=== PATIENT | male | born 1970 | race Caucasian/White ===

== ENCOUNTER 2017-06-08 18:35 | Inpatient (IN) | payer SELFPAY ==
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
[2017-06-08 20:09] LABS: EOS % 0.5 % (0-4.5)
[2017-06-08 20:37] LABS: ALBUMIN 4.1 g/dl (3.4-5.0); ANION GAP 6 (8-16); BILIRUBIN,TOTAL 0.4 mg/dL (0.2-1.0); BLOOD UREA NITROGEN 9 mg/dL (7-18); CALCIUM 8.5 mg/dL (8.5-10.1); CHLORIDE 104 mmol/L (98-107); CO2 29 mmol/L (21-32); GLUCOSE,RANDOM 89 mg/dL (74-106); POTASSIUM 4.3 mmol/L (3.5-5.1); SGOT/AST 25 U/L (15-37); SGPT/ALT 39 U/L (12-78); SODIUM 139 mmol/L (136-145); TOT PROT 7.5 g/dl (6.4-8.2)
[2017-06-08 20:38] LABS: ALK PHOS 69 U/L (45-117)
[2017-06-08 22:21] LABS: BASO % 0.3 % (0-2.0); HEMATOCRIT 45.8 % (35.4-49); HEMOGLOBIN 15.1 GM/dL (11.7-16.9); LYMPH % 23.9 % (8-40); MCH 26.4 pg (25.7-33.7); MCHC 32.9 g/dl (32.0-35.9); MEAN CELL VOLUME 80.4 fl (80-96); MEAN PLT VOLUME 7.5 fl (7.5-11.1); MONO % 6.2 % (3.8-10.2); NEUT % 69.1 % (42.8-82.8); PLATELET COUNT 294 K/MM3 (134-434); WHITE BLOOD COUNT 11.5 K/mm3 (4.0-10.0)
[2017-06-08 23:05] LABS: URINE APPEARANCE CLEAR; URINE BILIRUBIN NEGATIVE (NEGATIVE); URINE BLOOD NEGATIVE (NEGATIVE); URINE COLOR COLORLESS; URINE GLUCOSE (UA) NEGATIVE (NEGATIVE); URINE KETONE NEGATIVE (NEGATIVE); URINE LEUK ESTERASE NEGATIVE (NEGATIVE); URINE NITRITE NEGATIVE (NEGATIVE); URINE PROTEIN NEGATIVE (NEGATIVE); URINE UROBILINOGEN NEGATIVE mg/dL (0.2-1.0)
[2017-06-08] MEDS ORDERED: CEFTRIAXONE 1,000 MG in DEXTROSE 5%-WATER - 50 ML IVPB ONE (23:17)
[2017-06-08] MEDS ORDERED: CEFTRIAXONE 1 GM/50 ML BAG ONE (23:32)
[2017-06-09] MEDS ORDERED: ACETAMINOPHEN 325 MG TABLET (FP) PO PRN (00:39)
[2017-06-09] MEDS ORDERED: ONDANSETRON 4 MG/2 ML VIAL IVPUSH PRN (00:43)
[2017-06-09] MEDS ORDERED: SODIUM CHLORIDE 1,000 ML IV SCH (00:45)
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
[2017-06-09] MEDS ORDERED: DEXTROSE 5%-NORMAL SALINE 1,000 ML IV SCH (03:15)
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
[2017-06-09 09:03] LABS: BASO % 0.5 % (0-2.0); EOS % 2.2 % (0-4.5); HEMATOCRIT 43.9 % (35.4-49); HEMOGLOBIN 14.4 GM/dL (11.7-16.9); MCH 26.3 pg (25.7-33.7); MCHC 32.7 g/dl (32.0-35.9); MEAN CELL VOLUME 80.4 fl (80-96); MEAN PLT VOLUME 6.9 fl (7.5-11.1); MONO % 8.8 % (3.8-10.2); NEUT % 60.5 % (42.8-82.8); PLATELET COUNT 274 K/MM3 (134-434); RBC 5.46 M/mm3 (4.00-5.60); RDW 14.2 % (11.9-15.9); WHITE BLOOD COUNT 7.3 K/mm3 (4.0-10.0)
[2017-06-09 09:11] LABS: PROTHROMBIN TIME (PATIENT) 11.3 SEC (9.98-11.88)
[2017-06-09] MEDS ORDERED: CEFTRIAXONE 1 GM/50 ML BAG ONE (09:24)
[2017-06-09] MEDS ORDERED: MORPHINE SULFATE 10 MG/1 ML *VIAL IVPUSH ONE (09:30)
--- NOTE | 2017-06-09 09:44 | HOSP ---
Subjective - Review of Symptoms Events since last encounter: Seen and evaluated in ED holding. Non focal exam No further vomiting Several episodes loose stool after drinking contrast Denies pain Awaiting transport to OR Physical Examination Vital Signs: Vital Signs Temperature 97.7 F 06/08/17 18:45 Pulse Rate 67 06/09/17 09:30 Respiratory Rate 16 06/09/17 09:30 Blood Pressure 114/56 06/09/17 09:30 O2 Sat by Pulse Oximetry (%) 97 06/09/17 06:33 Labs: CBC, BMP 06/09/17 08:30
[2017-06-09 09:48] LABS: ALBUMIN 3.4 g/dl (3.4-5.0); ANION GAP 6 (8-16); BILIRUBIN,TOTAL 0.5 mg/dL (0.2-1.0); BLOOD UREA NITROGEN 8 mg/dL (7-18); CALCIUM 8.1 mg/dL (8.5-10.1); CHLORIDE 106 mmol/L (98-107); CO2 29 mmol/L (21-32); CREATININE 1.1 mg/dL (0.7-1.3); GLUCOSE,RANDOM 81 mg/dL (74-106); POTASSIUM 4.2 mmol/L (3.5-5.1); SGOT/AST 22 U/L (15-37); SGPT/ALT 33 U/L (12-78); SODIUM 141 mmol/L (136-145); TOT PROT 6.4 g/dl (6.4-8.2)
[2017-06-09 09:49] LABS: ALK PHOS 63 U/L (45-117)
[2017-06-09] MEDS ORDERED: PANTOPRAZOLE SODIUM 40 MG VIAL IVPUSH SCH (10:00)
[2017-06-09] MEDS ORDERED: CEFTRIAXONE 1 G/50 ML PREMIX 50 ML IVPB SCH (10:00)
[2017-06-09] MEDS ORDERED: cefTRIAXone 1 GM/50 ML BAG (PRE-DOCKED) IVPB SCH (10:00)
[2017-06-09] MEDS ORDERED: fentaNYL CITRATE 250 MCG/5 ML VIAL ONE (10:55)
[2017-06-09] MEDS ORDERED: PROPOFOL 20 ML ONE (10:55)
[2017-06-09] MEDS ORDERED: ROCURONIUM BROMIDE 50 MG/5 ML VIAL ONE (10:55)
[2017-06-09] MEDS ORDERED: MIDAZOLAM HCL 2 MG/2 ML SINGLE DOSE VIAL ONE (10:55)
[2017-06-09] MEDS ORDERED: LIDOCAINE HCL/PF 2% SDV 5ML VIAL ONE (10:57)
[2017-06-09] MEDS ORDERED: DEXAMETHASONE SOD PHOSPHATE 4 MG/1 ML VIAL ONE (11:05)
[2017-06-09] MEDS ORDERED: cefTRIAXone 1 GM/50 ML BAG (PRE-DOCKED) IVPB ONE (11:22)
[2017-06-09] MEDS ORDERED: GLYCOPYRROLATE 0.2 MG/1 ML VIAL ONE (12:05)
[2017-06-09] MEDS ORDERED: NEOSTIGMINE METHYLSULFATE 0.5 MG/ML - 10 ML MDV ONE (12:05)
[2017-06-09] MEDS ORDERED: KETOROLAC TROMETHAMINE 30 MG/1 ML VIAL ONE ×2 (12:14→12:15)
[2017-06-09] MEDS ORDERED: PROMETHAZINE HCL 25 MG/1 ML VIAL IVPUSH PRN (12:53)
[2017-06-09] MEDS ORDERED: LACTATED RINGERS SOLUTION 1,000 ML IV SCH (13:00)
[2017-06-09] MEDS ORDERED: HYDROmorphone HCL CARPU-JECT 4 MG/1 ML DISP.SYRIN ONE (13:02)
[2017-06-09] MEDS: HYDROmorphone HCL CARPU-JECT 1 MG/1 ML DISP.SYRIN IVPUSH PRN ×4 (13:02→13:32)
--- NOTE | 2017-06-09 13:02 | OP ---
Operative Note - Note: Operative Date: 06/09/17 Pre-Operative Diagnosis: appendicitis and small bowel intussusception Operation: Exploratory Laparotomy, appendectomy and segemntal small bowel ressection with primary stapled anastomsis Findings: inflamed appendix, diverticulum in the jejunum (possible lead point) no active intussuscepted bowel, encountered enterotomy during lysis so it was included in the ressection segment of small bowel. no other pathology identified. Post-Operative Diagnosis: Same as Pre-op Surgeon: Weor Page Anesthesiologist/MEDICAL LEAD: Patrick Espinosa Anesthesia: General Specimens Removed: appendix and 30cm of small bowel (jejunum) with enterotomy Estimated Blood Loss (mls): 30 Drains, Volume Out (mls): 50 (smyth) Fluid Volume Replaced (mls): 1,600 Operative Report Dictated: Yes
[2017-06-09] MEDS ORDERED: morphine CARPU-JECT 2 MG/1 ML DISP.SYRIN IVPUSH PRN (13:14)
[2017-06-09] MEDS: DEXTROSE 5%-NORMAL SALINE 1,000 ML IV SCH (14:30)
[2017-06-09] MEDS: MORPHINE SULFATE 10 MG/1 ML *VIAL IVPUSH PRN (16:50)
[2017-06-09 20:00] VITALS: BMI 24.7
[2017-06-10] MEDS: MORPHINE SULFATE 10 MG/1 ML *VIAL IVPUSH PRN ×4 (00:27→20:13)
[2017-06-10] MEDS: DEXTROSE 5%-NORMAL SALINE 1,000 ML IV SCH ×4 (00:35→20:01)
[2017-06-10 08:26] LABS: BASO % 0.1 % (0-2.0); HEMOGLOBIN 13.9 GM/dL (11.7-16.9); LYMPH % 8.5 % (8-40); MCH 26.1 pg (25.7-33.7); MCHC 32.4 g/dl (32.0-35.9); MEAN CELL VOLUME 80.6 fl (80-96); MEAN PLT VOLUME 7.3 fl (7.5-11.1); MONO % 7.3 % (3.8-10.2); NEUT % 84.1 % (42.8-82.8); PLATELET COUNT 270 K/MM3 (134-434); RBC 5.33 M/mm3 (4.00-5.60); RDW 13.8 % (11.9-15.9); WHITE BLOOD COUNT 13.7 K/mm3 (4.0-10.0)
--- NOTE | 2017-06-10 08:47 | PN ---
Progress Note (short form) - Note Progress Note: POD #1 - s/p open appendectomy/small bowel resection under general anesthesia. Pt. resting comfortably in bed. No anesthesia complaints. No apparent anesthetic complications noted. Continue current care.
[2017-06-10 08:54] LABS: ANION GAP 7 (8-16); BILIRUBIN,TOTAL 0.4 mg/dL (0.2-1.0); BLOOD UREA NITROGEN 7 mg/dL (7-18); CHLORIDE 106 mmol/L (98-107); CO2 25 mmol/L (21-32); GLUCOSE,RANDOM 127 mg/dL (74-106); MAGNESIUM 2.1 mg/dL (1.8-2.4); POTASSIUM 4.2 mmol/L (3.5-5.1); SGPT/ALT 26 U/L (12-78); SODIUM 138 mmol/L (136-145)
[2017-06-10 08:59] LABS: ALK PHOS 51 U/L (45-117); SGOT/AST 16 U/L (15-37); TOT PROT 6.2 g/dl (6.4-8.2)
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
[2017-06-10] MEDS: PANTOPRAZOLE SODIUM 40 MG VIAL IVPUSH SCH (09:24)
[2017-06-10] MEDS: CEFTRIAXONE 1 G/50 ML PREMIX 50 ML IVPB SCH (09:30)
--- NOTE | 2017-06-10 10:43 | PN ---
Physical Exam: SUBJECTIVE: Patient seen and examined OBJECTIVE: Vital Signs Period Temp Pulse Resp BP Sys/Bradshaw Pulse Ox Last 24 Hr 97.5 F-98.6 F 75-105 16-20 116-146/64-88 96-100 Laboratory Results - last 24 hr 06/10/17 06/10/17 08:10 08:10 WBC 13.7 H D RBC 5.33 Hgb 13.9 Hct 43.0 MCV 80.6 MCH 26.1 MCHC 32.4 RDW 13.8 Plt Count 270 MPV 7.3 L Neutrophils % 84.1 H D Lymphocytes % 8.5 D Monocytes % 7.3 Eosinophils % 0.0 D Basophils % 0.1 Sodium 138 Potassium 4.2 Chloride 106 Carbon Dioxide 25 Anion Gap 7 L BUN 7 Creatinine 1.0 Creat Clearance w eGFR > 60 Random Glucose 127 H D Calcium 8.0 L Magnesium 2.1 Total Bilirubin 0.4 AST 16 D ALT 26 D Alkaline Phosphatase 51 Total Protein 6.2 L Albumin 3.0 L Active Medications Generic Name Dose Route Start Last Admin Trade Name Yuniorq PRN Reason Stop Dose Admin CEFTRIAXONE 1 G/50 ML PREMIX 50 mls @ 50 mls/hr 06/10/17 10:00 06/10/17 09:30 Ceftriaxone 1 Gm-D5w Bag IVPB 50 mls/hr DAILY MAURICIO Administration Dextrose/Sodium Chloride 1,000 mls @ 125 mls/hr 06/09/17 13:25 06/10/17 09:22 D5-Ns - IV 125 mls/hr ASDIR MAUIRCIO Administration Metronidazole 500 mg in 100 mls @ 100 mls/hr 06/09/17 15:00 06/10/17 09:26 Flagyl 500mg Premixed Ivpb - IVPB 100 mls/hr Q6H-IV MAURICIO Administration Morphine Sulfate 4 mg 06/09/17 13:25 06/10/17 06:22 Morphine Injection - IVPUSH 4 mg Q4H PRN Administration PAIN LEVEL 7 - 10 Pantoprazole Sodium 40 mg 06/10/17 10:00 06/10/17 09:24 Protonix Iv IVPUSH 40 mg DAILY MAURICIO Administration ASSESSMENT/PLAN:
[2017-06-10] MEDS ORDERED: BENZOCAINE/MENTH/CETYLPYRD CL 1 EACH LOZENGE MM PRN (14:26)
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
[2017-06-11] MEDS: MORPHINE SULFATE 10 MG/1 ML *VIAL IVPUSH PRN ×2 (03:51→20:59)
[2017-06-11] MEDS: DEXTROSE 5%-NORMAL SALINE 1,000 ML IV SCH ×3 (05:59→15:09)
[2017-06-11 08:22] LABS: BASO % 0.3 % (0-2.0); EOS % 0.5 % (0-4.5); LYMPH % 26.6 % (8-40); MCH 26.3 pg (25.7-33.7); MCHC 32.5 g/dl (32.0-35.9); MONO % 8.8 % (3.8-10.2); NEUT % 63.8 % (42.8-82.8); PLATELET COUNT 261 K/MM3 (134-434); RBC 4.95 M/mm3 (4.00-5.60); RDW 14.3 % (11.9-15.9); WHITE BLOOD COUNT 9.7 K/mm3 (4.0-10.0)
[2017-06-11 08:40] LABS: ANION GAP 7 (8-16); BLOOD UREA NITROGEN 7 mg/dL (7-18); CHLORIDE 107 mmol/L (98-107); CO2 27 mmol/L (21-32); GLUCOSE,RANDOM 100 mg/dL (74-106); POTASSIUM 3.7 mmol/L (3.5-5.1); SGOT/AST 13 U/L (15-37); SGPT/ALT 21 U/L (12-78); SODIUM 141 mmol/L (136-145)
[2017-06-11 08:42] LABS: ALK PHOS 46 U/L (45-117); BILIRUBIN,TOTAL 0.6 mg/dL (0.2-1.0); TOT PROT 6.1 g/dl (6.4-8.2)
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
[2017-06-11] MEDS: CEFTRIAXONE 1 G/50 ML PREMIX 50 ML IVPB SCH (09:44)
[2017-06-11] MEDS: PANTOPRAZOLE SODIUM 40 MG VIAL IVPUSH SCH (09:44)
--- NOTE | 2017-06-11 16:50 | PATH ---
Surgical Pathology Report Patient Name: KRISTA ANDERSON [facility]. Rec. #: [id number] /Age/Gender: 1970 (Age: 46) / M Account: [id number] Location: [address] [place] [address] Taken: 06/09/2017 Received: 06/10/2017 Reported: 06/11/2017 Physicians: Wero Page M.D. Specimen(s) Received A: APPENDIX B: SMALL BOWEL PORTION OF Clinical History Acute appendicitis, intussusception Final Diagnosis A. APPENDIX, APPENDECTOMY: FOCAL ACUTE MILD APPENDICITIS. B. SMALL BOWEL, RESECTION: SEGMENT OF SMALL BOWEL WITH FOCAL VASCULAR CONGESTION, EDEMA AND MILD ISCHEMIC CHANGES. SURGICAL MARGINS ARE VIABLE. Electronically Signed Bria Montiel M.D. Gross Description A. Received in formalin, labeled "appendix," is a 7 cm. in length vermiform appendix with a stapled margin of resection and moderate attached fat. The serosa is bains-shields and smooth. Sectioning reveals an unremarkable lumen. The wall of the appendix averages 0.1 cm. in thickness. Scientist Engineer sections are submitted in one cassette. B. Received in formalin labeled "small bowel portion of," are 2 portions of small bowel measuring 3.0 and 45.0 cm in length. Both specimens display 2 stapled margins of resection and moderate attached fat. The serosa is bains-red with a focal shields purple, dusky appearance in the longer specimen. Sectioning reveals a bains green, focally edematous mucosa with normal folds. No mucosal masses are identified. Scientist Engineer sections are submitted in 10 cassettes as follows: 7-7-qbovcrxpqlbq stapled margins from shorter portion of bowel; 5-1-hkbcpvxwckjqbt sections of shorter portion of bowel; 7-8-irvpqmcsgqwo stapled margins from longer portion of specimen; 8-9-mbashxnd from dusky area of longer portion of bowel; 1-05-embfrlbpxe mucosa from longer portion of bowel. /06/10/2017 [facility]06/10/2017
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
[2017-06-11] MEDS: HEPARIN NA (PORCINE) 5,000 UNITS/ML 1ML VIAL SQ SCH (21:49)
[2017-06-12] MEDS: DEXTROSE 5%-NORMAL SALINE 1,000 ML IV SCH ×2 (01:00→10:44)
[2017-06-12] MEDS: MORPHINE SULFATE 10 MG/1 ML *VIAL IVPUSH PRN (04:44)
[2017-06-12] MEDS: HEPARIN NA (PORCINE) 5,000 UNITS/ML 1ML VIAL SQ SCH ×3 (05:52→21:27)
[2017-06-12 08:25] LABS: BASO % 0.7 % (0-2.0); EOS % 1.1 % (0-4.5); HEMOGLOBIN 13.7 GM/dL (11.7-16.9); LYMPH % 23.7 % (8-40); MCH 25.9 pg (25.7-33.7); MCHC 31.9 g/dl (32.0-35.9); MEAN CELL VOLUME 81.2 fl (80-96); MEAN PLT VOLUME 6.9 fl (7.5-11.1); MONO % 10.4 % (3.8-10.2); NEUT % 64.1 % (42.8-82.8); PLATELET COUNT 278 K/MM3 (134-434); RBC 5.29 M/mm3 (4.00-5.60); RDW 14.2 % (11.9-15.9); WHITE BLOOD COUNT 9.8 K/mm3 (4.0-10.0)
[2017-06-12 08:47] LABS: ALBUMIN 2.6 g/dl (3.4-5.0); ALK PHOS 41 U/L (45-117); ANION GAP 7 (8-16); BILIRUBIN,TOTAL 0.4 mg/dL (0.2-1.0); BLOOD UREA NITROGEN 9 mg/dL (7-18); CALCIUM 7.7 mg/dL (8.5-10.1); CHLORIDE 107 mmol/L (98-107); CO2 26 mmol/L (21-32); CREATININE 0.8 mg/dL (0.7-1.3); GLUCOSE,RANDOM 105 mg/dL (74-106); SGOT/AST 8 U/L (15-37); SGPT/ALT 15 U/L (12-78); SODIUM 140 mmol/L (136-145); TOT PROT 5.4 g/dl (6.4-8.2)
[2017-06-12] MEDS: PANTOPRAZOLE SODIUM 40 MG VIAL IVPUSH SCH (09:14)
[2017-06-12] MEDS: CEFTRIAXONE 1 G/50 ML PREMIX 50 ML IVPB SCH (10:38)
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
[2017-06-12] MEDS ORDERED: ACETAMINOPHEN 325 MG TABLET (FP) PO PRN (23:35)
[2017-06-13] MEDS: HEPARIN NA (PORCINE) 5,000 UNITS/ML 1ML VIAL SQ SCH ×2 (06:29→14:42)
[2017-06-13 09:09] VITALS: TEMP 98
[2017-06-13] MEDS ORDERED: PANTOPRAZOLE 40 MG TABLET (FP) PO SCH (10:00)
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
[2017-06-13] MEDS: CEFTRIAXONE 1 G/50 ML PREMIX 50 ML IVPB SCH (11:14)
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
[2017-06-13 14:08] VITALS: BP 121/73; PULSE 94
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
== END 2017-06-13 18:02 | disposition home or self-care (01) | DRG 221 ==
LOC: JER 18:35 → JASUSAT 06-09 00:01 → JERBED 06-09 00:01 → SUATTDRO 06-09 00:01 → UNDOADMIN 06-09 00:01 → J6S 06-09 14:53 → JASUSAT 06-09 14:54 → JERBED 06-11 00:59 → J6S 06-11 01:00
PROVIDERS: ADMIT Hospitalist; ATTEND Nurse Practitioner Acute Care
PROC: 0DB80ZZ Excision of Small Intestine, Open Approach (ICD-10-PCS; principal; 2017-06-13)
PROC: 0DTJ0ZZ Resection of Appendix, Open Approach (ICD-10-PCS; 2017-06-13)
DX: K35.3 Acute appendicitis with localized peritonitis (principal); K56.1 Intussusception; M79.5 Residual foreign body in soft tissue; R10.31 Right lower quadrant pain; D72.828 Other elevated white blood cell count
CPT/HCPCS: 36415; 74177-TC; 80053; 81003; 83735; 85025; 85610; 86850; 86900; 86901; 87040; 88304-TC; 88307-TC; 94760; 99283-25; J1644